=== PATIENT | female | born 1965 | race Caucasian/White ===

== ENCOUNTER 2018-03-20 06:22 | Day surgery (SDC) | payer OTHER, MEDICARE ==
[~2018-03-20] VITALS: Ht 144.8 cm; Wt 69.0 kg
[~2018-03-20 06:22] MED LIST: AMLO-512 PO; CALC-877 PO; CARB200T6 PO; CHLO100T24 PO; CHLO25 PO; CLON.2 PO; LABE100 PO; LORA10TA7 PO; METF-445 PO; MULT1CAP32 PO; RINGERS SOLUTION,LACTATED 1,000 ML IV ONE; SIMV-261 PO; TERA5CAP12 PO
[2018-03-20] MEDS ORDERED: RINGERS SOLUTION,LACTATED 1,000 ML IV ONE ×2 (07:00→11:28)
[2018-03-20] MEDS ORDERED: MEPERIDINE-PF 25 MG/ML VIAL IVP PRN (11:45)
[2018-03-20] MEDS ORDERED: FentaNYL CITRATE-PF 100 MCG/2 ML VIAL IVP PRN (11:45)
[2018-03-20] MEDS ORDERED: HYDROmorphone 2 MG/ML SYRINGE IVP PRN (11:45)
[2018-03-20] MEDS ORDERED: FentaNYL CITRATE-PF 100 MCG/2 ML VIAL ONE (11:49)
[2018-03-20] MEDS ORDERED: FentaNYL CITRATE-PF 100 MCG/2 ML VIAL IVP STA (11:52)
[2018-03-20] MEDS ORDERED: LABETALOL HCL 5 MG/ML 20 ML VIAL IVP ONE (11:52)
[2018-03-20] MEDS ORDERED: LABETALOL HCL 5 MG/ML 20 ML VIAL IVP STA (11:55)
[2018-03-20] MEDS ORDERED: METOCLOPRAMIDE HCL 5 MG/ML 2 ML VIAL IVP ONE (12:00)
[2018-03-20] MEDS ORDERED: GLYCOPYRROLATE 0.2 MG/ML VIAL IM ONE (12:00)
[2018-03-20] MEDS ORDERED: FentaNYL CITRATE-PF 100 MCG/2 ML VIAL IVP ONE (12:00)
[2018-03-20] MEDS ORDERED: NEOSTIGMINE METHYLSULFATE 1 MG/ML 10 ML VIAL IVP ONE (12:00)
[2018-03-20] MEDS ORDERED: ROCURONIUM BROMIDE 10 MG/ML 5 ML VIAL IVP ONE (12:00)
[2018-03-20] MEDS ORDERED: ONDANSETRON HCL 4 MG/2 ML VIAL IVP ONE (12:00)
[2018-03-20] MEDS ORDERED: DEXAMETHASONE SOD PHOS 4 MG/ML VIAL IVP ONE (12:00)
[2018-03-20] MEDS ORDERED: LIDOCAINE/PF 2% 5 ML VIAL INJ ONE (12:00)
[2018-03-20] MEDS ORDERED: KETOROLAC TROMETHAMINE 60 MG/2 ML VIAL IM ONE (12:00)
[2018-03-20] MEDS ORDERED: PROPOFOL 1% 20 ML VIAL IVP ONE (12:00)
[2018-03-20] MEDS ORDERED: MIDAZOLAM HCL 2 MG/2 ML VIAL IVP ONE (12:00)
[2018-03-20 12:05] VITALS: BP 193/122
[2018-03-20] MEDS ORDERED: HydrALAZINE HCL 20 MG/ML VIAL ONE (12:19)
[2018-03-20] MEDS ORDERED: LABETALOL HCL 5 MG/ML 20 ML VIAL IVP PRN (12:30)
[2018-03-20] MEDS: HydrALAZINE HCL 20 MG/ML VIAL IVP PRN ×2 (12:30→12:45)
[2018-03-20 12:59] LABS: GLUCOMETER DEV NAME(LOC) SDS 5; GLUCOSE,POINT OF CARE 136 MG/DL (70-110)
[2018-03-20] MEDS ORDERED: OXYGEN THERAPY IH SCH (20:00)
== END 2018-03-20 13:29 | disposition short-term general hospital (02) ==
LOC: SURGERY 06:22
PROVIDERS: ATTEND Dentist General Practice
DX: K05.30 Chronic periodontitis, unspecified (principal); E03.9 Hypothyroidism, unspecified; E11.9 Type 2 diabetes mellitus without complications; I10 Essential (primary) hypertension; F78 Other intellectual disabilities; Z79.84 Long term (current) use of oral hypoglycemic drugs; Z86.69 Personal history of other diseases of the nervous system and sense organs; Z79.899 Other long term (current) drug therapy
CPT/HCPCS: 41899; 82962; J0360; J0690; J1100; J1885; J2250; J2405; J2704; J2765; J3010; J3490 ×4; J7120

== ENCOUNTER 2019-06-18 06:25 | Day surgery (SDC) | payer OTHER, MEDICARE ==
[~2019-06-18] VITALS: Ht 185.4 cm; Wt 67.3 kg
[~2019-06-18 06:25] MED LIST changes: +ACET-2247 PO; -AMLO-512 PO; +AMLO10TA7 PO; +BENA20TA11 PO; -CLON.2 PO; +CLON0.2T2 PO; -LABE100 PO; +LABE100T8 PO; +LABE200T6 PO; +PSEU-224 PO
[2019-06-18] MEDS ORDERED: ALBUTEROL SULFATE HFA 90 MCG/PUFF 8 GM INHALER IH ONE ×2 (06:26→12:45)
[2019-06-18] MEDS ORDERED: MIDAZOLAM HCL 2 MG/2 ML VIAL IVP ONE (06:26)
[2019-06-18] MEDS ORDERED: LIDOCAINE 1% 10 ML VIAL IM ONE (06:26)
[2019-06-18] MEDS ORDERED: PROPOFOL 1% 20 ML VIAL IVP ONE (06:26)
[2019-06-18] MEDS ORDERED: ONDANSETRON HCL 4 MG/2 ML VIAL IVP ONE (06:26)
[2019-06-18] MEDS ORDERED: ROCURONIUM BROMIDE 10 MG/ML 5 ML VIAL IVP ONE (06:26)
[2019-06-18] MEDS ORDERED: RINGERS SOLUTION,LACTATED 1,000 ML IV ONE (07:00)
[2019-06-18 07:16] LABS: BASOPHILS % (AUTO) 0.7 % (0.0-2.0); EOSINOPHILS % (AUTO) 1.7 % (1.0-6.0); HEMATOCRIT 36.5 % (36-46); HEMOGLOBIN 12.5 g/dL (12.0-16.0); LYMPHOCYTES # (AUTO) 0.8 K/uL (1.0-4.8); LYMPHOCYTES % (AUTO) 8.8 % (22.0-44.0); MEAN CORPUSCULAR HEMOGLOBIN 32.7 pg (26.0-34.0); MEAN CORPUSCULAR HGB CONC 34.2 G/dL (31.0-37.0); MEAN CORPUSCULAR VOLUME 96 fL (80-100); MONOCYTES # (AUTO) 0.6 K/uL (0.1-1.0); NEUTROPHILS % (AUTO) 81.8 % (40.0-70.0); PLATELET COUNT (AUTO) 214 K/uL (150-450); RED BLOOD CELL COUNT(AUTO) 3.82 MIL/uL (4.00-5.20)
[2019-06-18 07:25] LABS: ANION GAP 6 mmol/L (8-16); CALCIUM, TOTAL 8.7 mg/dL (8.8-10.5); CARBON DIOXIDE 30 mmol/L (22-29); CHLORIDE 104 mmol/L (98-107); CREATININE 0.61 mg/dL (0.60-1.30); GLOMERULAR FILTR. RATE CALC > 60 mL/min (>60); GLUCOSE,RANDOM 157 mg/dL (70-110); POTASSIUM 3.9 mmol/L (3.5-5.1); SODIUM SERUM 140 mmol/L (136-145); UREA NITROGEN, BLOOD 15 mg/dL (7-18)
[2019-06-18 07:31] LABS: ALANINE AMINOTRANSFERASE 25 U/L (12-78); ALBUMIN 3.3 g/dL (3.4-5.0); ALKALINE PHOSPHATASE 100 U/L (46-116); ASPARTATE AMINOTRANSFERASE 15 U/L (15-37); BILIRUBIN,TOTAL 0.3 mg/dL (0.1-1.0)
[2019-06-18 07:33] LABS: PROTHROMBIN TIME 10.4 SEC (9.4-11.6)
[2019-06-18] MEDS ORDERED: AMPICILLIN SODIUM 1 GM/VIAL ONE ×2 (08:58→09:26)
[2019-06-18] MEDS ORDERED: ALBUTEROL SULFATE 2.5 MG/0.5 ML NEB SOLUTION NEB ONE (12:29)
[2019-06-18] MEDS ORDERED: SUGAMMADEX SODIUM 200 MG/2 ML VIAL IVP ONE (12:39)
[2019-06-18] MEDS ORDERED: MEPERIDINE-PF 25 MG/ML VIAL IVP PRN (13:00)
[2019-06-18] MEDS ORDERED: FentaNYL CITRATE-PF 100 MCG/2 ML VIAL IVP PRN (13:00)
[2019-06-18] MEDS ORDERED: HYDROmorphone 2 MG/ML SYRINGE IVP PRN (13:00)
[2019-06-18] MEDS ORDERED: ACETAMINOPHEN 325 MG TABLET PO PRN (14:45)
[2019-06-18] MEDS ORDERED: ONDANSETRON HCL 4 MG/2 ML VIAL IVP PRN (14:45)
[2019-06-18] MEDS ORDERED: HYDROCODONE/ACETAMINOPHEN 5-325 MG TABLET PO PRN (14:45)
[2019-06-18] MEDS ORDERED: MORPHINE SULFATE 2 MG/ML SYRINGE IVP PRN (14:45)
[2019-06-18] MEDS ORDERED: BISACODYL 10 MG RECTAL RECTAL SUPPOSITORY PR PRN (14:45)
[2019-06-18] MEDS ORDERED: CLINDAMYCIN 600 MG/D5% WATER 50 ML IV ONE (14:45)
[2019-06-18] MEDS ORDERED: MAGNESIUM HYDROXIDE SUSPENSION 30 ML UDCUP PO PRN (14:45)
[2019-06-18] MEDS ORDERED: ZOLPIDEM TARTRATE 5 MG TABLET PO PRN (14:45)
[2019-06-18] MEDS ORDERED: ALBUTEROL SULFATE 2.5 MG/0.5 ML NEB SOLUTION NEB PRN (14:45)
[2019-06-18] MEDS ORDERED: IPRATROPIUM BROMIDE 0.5 MG/2.5 ML NEB SOLUTION NEB PRN (14:45)
[2019-06-18] MEDS ORDERED: LEVOFLOXACIN 750 MG/D5% WATER 150 ML IV SCH (15:00)
[2019-06-18 15:14] LABS: GLUCOMETER DEV NAME(LOC) SDS.; GLUCOSE,POINT OF CARE 141 MG/DL (70-110)
[2019-06-18] MEDS ORDERED: HEPARIN SODIUM,PORCINE 5,000 UNITS/ML VIAL SQ SCH (16:00)
[2019-06-18] MEDS ORDERED: CloNIDine HCL 0.2 MG TABLET PO SCH (16:00)
[2019-06-18 16:46] VITALS: BP 162/88
[2019-06-18] MEDS ORDERED: MetFORMIN HCL 850 MG TABLET PO SCH (17:30)
[2019-06-18] MEDS ORDERED: OXYGEN THERAPY IH SCH (20:00)
[2019-06-18] MEDS ORDERED: DOCUSATE SODIUM 100 MG CAPSULE PO SCH (21:00)
[2019-06-18] MEDS ORDERED: SIMVASTATIN 40 MG TABLET PO SCH (21:00)
[2019-06-18] MEDS ORDERED: LABETALOL HCL 200 MG TABLET PO SCH (21:00)
[2019-06-18] MEDS ORDERED: ChlorproMAZINE HCL 25 MG TABLET PO SCH (21:00)
[2019-06-18] MEDS ORDERED: ChlorproMAZINE HCL 100 MG TABLET PO SCH (21:00)
[2019-06-18] MEDS ORDERED: LABETALOL HCL 100 MG TABLET PO SCH (21:00)
[2019-06-18] MEDS ORDERED: CarBAMazepine 200 MG TABLET PO SCH (21:00)
[2019-06-19] MEDS ORDERED: TERAZOSIN HCL 5 MG CAPSULE PO SCH (09:00)
[2019-06-19] MEDS ORDERED: AmLODIPine BESYLATE 10 MG TABLET PO SCH (09:00)
[2019-06-19] MEDS ORDERED: PANTOPRAZOLE SODIUM 40 MG DR TABLET PO SCH (09:00)
[2019-06-19] MEDS ORDERED: LORATADINE 10 MG TABLET PO SCH (09:00)
[2019-06-19] MEDS ORDERED: BENAZEPRIL HCL 20 MG TABLET PO SCH (09:00)
[2019-06-19] MEDS ORDERED: CLIN300C3 PO (10:33)
[2019-06-19] MEDS ORDERED: LEVO750T21 PO (10:33)
== END 2019-06-18 16:17 | disposition short-term general hospital (02) ==
LOC: SURGERY 06:25
PROVIDERS: ATTEND Dentist General Practice
DX: K02.9 Dental caries, unspecified (principal); K05.30 Chronic periodontitis, unspecified; G40.909 Epilepsy, unspecified, not intractable, without status epilepticus; I10 Essential (primary) hypertension; E11.9 Type 2 diabetes mellitus without complications; E78.5 Hyperlipidemia, unspecified; Z79.899 Other long term (current) drug therapy; Z79.01 Long term (current) use of anticoagulants
CPT/HCPCS: 36415; 41899; 71045; 80053; 82962; 85025; 85610; 85730; 87040; 93005; J0290; J1956; J2250; J2405; J2704; J3490 ×3; J7120; J3535

== ENCOUNTER 2019-06-18 16:30 | Inpatient (IN) | payer MEDICARE, OTHER ==
[~2019-06-18 16:30] MED LIST changes: -RINGERS SOLUTION,LACTATED 1,000 ML IV ONE
[2019-06-18 16:46] VITALS: BP 162/88
[2019-06-18] MEDS ORDERED: ACETAMINOPHEN 325 MG TABLET PO PRN ×2 (17:15→20:15)
[2019-06-18] MEDS ORDERED: PSEUDOEPHEDRINE HCL 30 MG TABLET PO PRN (17:15)
[2019-06-18] MEDS ORDERED: *CLINICAL-LEVOFLOXACIN IVPB DOSING CLINICAL ONE (17:15)
[2019-06-18 19:38] VITALS: BP 158/96
[2019-06-18] MEDS ORDERED: SODIUM CHLORIDE 0.9% 500 ML IV ONE (19:54)
[2019-06-18] MEDS: CLINDAMYCIN 600 MG/D5% WATER 50 ML IV SCH (20:05)
[2019-06-18] MEDS: LABETALOL HCL 100 MG TABLET PO SCH (20:09)
[2019-06-18] MEDS: LABETALOL HCL 200 MG TABLET PO SCH (20:09)
[2019-06-18] MEDS: MetFORMIN HCL 850 MG TABLET PO SCH (20:10)
[2019-06-18] MEDS: CarBAMazepine 200 MG TABLET PO SCH (20:11)
[2019-06-18] MEDS ORDERED: ONDANSETRON HCL 4 MG/2 ML VIAL IVP PRN (20:15)
[2019-06-18] MEDS ORDERED: MAGNESIUM HYDROXIDE SUSPENSION 30 ML UDCUP PO PRN (20:15)
[2019-06-18] MEDS ORDERED: ZOLPIDEM TARTRATE 5 MG TABLET PO PRN (20:15)
[2019-06-18] MEDS ORDERED: BISACODYL 10 MG RECTAL RECTAL SUPPOSITORY PR PRN (20:15)
[2019-06-18] MEDS ORDERED: HYDROCODONE/ACETAMINOPHEN 5-325 MG TABLET PO PRN (20:15)
[2019-06-18] MEDS ORDERED: MORPHINE SULFATE 2 MG/ML SYRINGE IVP PRN (20:15)
[2019-06-18] MEDS: DOCUSATE SODIUM 100 MG CAPSULE PO SCH (20:18)
[2019-06-18] MEDS: CloNIDine HCL 0.2 MG TABLET PO SCH (20:18)
[2019-06-18] MEDS ORDERED: SIMVASTATIN 40 MG TABLET PO SCH (21:00)
[2019-06-18] MEDS ORDERED: LEVOFLOXACIN 750 MG/D5% WATER 150 ML IV SCH (21:00)
[2019-06-18] MEDS ORDERED: ChlorproMAZINE HCL 100 MG TABLET PO SCH (21:00)
[2019-06-18 23:05] VITALS: BP 163/99
[2019-06-19] MEDS: HEPARIN SODIUM,PORCINE 5,000 UNITS/ML VIAL SQ SCH ×2 (00:04→08:36)
[2019-06-19] MEDS: CLINDAMYCIN 600 MG/D5% WATER 50 ML IV SCH (03:40)
[2019-06-19 05:01] VITALS: BP 150/90
[2019-06-19 08:06] VITALS: BP 178/101
[2019-06-19] MEDS: DOCUSATE SODIUM 100 MG CAPSULE PO SCH (08:34)
[2019-06-19] MEDS: LABETALOL HCL 200 MG TABLET PO SCH (08:48)
[2019-06-19] MEDS: CarBAMazepine 200 MG TABLET PO SCH (08:48)
[2019-06-19] MEDS: MetFORMIN HCL 850 MG TABLET PO SCH (08:49)
[2019-06-19] MEDS: LABETALOL HCL 100 MG TABLET PO SCH (08:49)
[2019-06-19] MEDS ORDERED: BENAZEPRIL HCL 20 MG TABLET PO SCH (09:00)
[2019-06-19] MEDS: CloNIDine HCL 0.2 MG TABLET PO SCH (09:00)
[2019-06-19] MEDS ORDERED: ChlorproMAZINE HCL 25 MG TABLET PO SCH (09:00)
[2019-06-19] MEDS ORDERED: LORATADINE 10 MG TABLET PO SCH (09:00)
[2019-06-19] MEDS ORDERED: AmLODIPine BESYLATE 10 MG TABLET PO SCH (09:00)
[2019-06-19] MEDS ORDERED: PANTOPRAZOLE SODIUM 40 MG DR TABLET PO SCH (09:00)
[2019-06-19] MEDS ORDERED: MULTIVITAMINS, THERAPEUTIC TABLET PO SCH (09:00)
[2019-06-19] MEDS ORDERED: TERAZOSIN HCL 5 MG CAPSULE PO SCH (09:00)
[2019-06-19] MEDS ORDERED: CALCIUM OYSTER SHELL 250 MG-VIT D3 125 UNITS TABLET PO SCH (09:00)
[2019-06-19 10:28] VITALS: BP 127/76
[2019-06-19] MEDS ORDERED: LEVO750T21 PO (10:33)
[2019-06-19] MEDS ORDERED: CLIN300C3 PO (10:33)
== END 2019-06-19 11:30 | disposition home or self-care (01) | DRG 195 ==
LOC: 6N 16:30 → 4E 06-19 06:52
PROVIDERS: ADMIT Internal Medicine; ATTEND Internal Medicine
DX: J18.9 Pneumonia, unspecified organism (principal); I10 Essential (primary) hypertension; E11.9 Type 2 diabetes mellitus without complications; E78.5 Hyperlipidemia, unspecified; G47.33 Obstructive sleep apnea (adult) (pediatric); G40.909 Epilepsy, unspecified, not intractable, without status epilepticus; Z79.899 Other long term (current) drug therapy
CPT/HCPCS: J1644; J1956; J3490; J7040

== ENCOUNTER → 2020-10-13 | Day surgery (SDC) | payer OTHER, MEDICARE ==
[~2020-10-13] VITALS: Ht 149.9 cm; Wt 67.3 kg
[~2020-10-13] MED LIST changes: +AMLO-258 PO; -AMLO10TA7 PO; +AMPICILLIN SODIUM 2 GM/NS 100 ML IV ONE; -CHLO100T24 PO; +CHLO100T31 PO; -CHLO25 PO; +CHLO25TA47 PO; +CLIN300C3 PO; +DEXAMETHASONE SOD PHOS 4 MG/ML VIAL IVP ONE; +FentaNYL CITRATE PF 100 MCG/2 ML VIAL IVP ONE; +FentaNYL CITRATE PF 100 MCG/2 ML VIAL IVP PRN; +HYDROmorphone 2 MG/ML VIAL IVP PRN; +LEVO750T21 PO; +MEPERIDINE-PF 25 MG/ML VIAL IVP PRN; +ONDANSETRON HCL 4 MG/2 ML VIAL IVP ONE; +PROPOFOL 1% 20 ML VIAL IVP ONE; +RINGERS SOLUTION,LACTATED 1,000 ML IV ONE; +SUCCINYLCHOLINE CHLORIDE 20 MG/ML 10 ML VIAL IVP ONE; -TERA5CAP12 PO; +TERA5CAP77 PO
[2020-10-13 07:26] LABS: COVID AG,FIA SOURCE NASOPHARYNGEAL
[2020-10-13 07:31] LABS: BASOPHILS % (AUTO) 0.9 % (0.0-2.0); EOSINOPHILS % (AUTO) 1.2 % (1.0-6.0); HEMATOCRIT 43.8 % (36-46); HEMOGLOBIN 14.6 g/dL (12.0-16.0); LYMPHOCYTES # (AUTO) 0.9 K/uL (1.0-4.8); LYMPHOCYTES % (AUTO) 16.8 % (22.0-44.0); MEAN CORPUSCULAR HEMOGLOBIN 31.7 pg (26.0-34.0); MEAN CORPUSCULAR HGB CONC 33.4 G/dL (31.0-37.0); MEAN CORPUSCULAR VOLUME 95 fL (80-100); MONOCYTES # (AUTO) 0.5 K/uL (0.1-1.0); NEUTROPHILS # (AUTO) 4.1 K/uL (1.8-7.7); NEUTROPHILS % (AUTO) 72.1 % (40.0-70.0); PLATELET COUNT (AUTO) 201 K/uL (150-450); RED BLOOD CELL COUNT(AUTO) 4.61 MIL/uL (4.00-5.20); RED CELL DISTRIBUTION WIDTH 13.2 % (11.5-14.5)
[2020-10-13 07:46] LABS: ANION GAP 12 mmol/L (8-16); CALCIUM, TOTAL 9.4 mg/dL (8.8-10.5); CARBON DIOXIDE 28 mmol/L (22-29); CHLORIDE 103 mmol/L (98-107); CREATININE 0.63 mg/dL (0.60-1.30); GLOMERULAR FILTR. RATE CALC > 60 mL/min (>60); GLUCOSE,RANDOM 148 mg/dL (70-110); POTASSIUM 3.8 mmol/L (3.5-5.1); SODIUM SERUM 143 mmol/L (136-145); UREA NITROGEN, BLOOD 15 mg/dL (7-18)
[2020-10-13 07:53] LABS: ALANINE AMINOTRANSFERASE 27 U/L (12-78); ALBUMIN 4.3 g/dL (3.4-5.0); ALKALINE PHOSPHATASE 101 U/L (46-116); ASPARTATE AMINOTRANSFERASE 16 U/L (15-37); BILIRUBIN,TOTAL 0.5 mg/dL (0.1-1.0); TOTAL PROTEIN, SERUM 7.5 g/dL (6.4-8.2)
[2020-10-13 07:58] LABS: PROTHROMBIN TIME 10.9 SEC (9.4-11.6)
== END | disposition home or self-care (01) ==
LOC: SURGERY 06:34
PROVIDERS: ATTEND Dentist General Practice
DX: K02.9 Dental caries, unspecified (principal); K05.30 Chronic periodontitis, unspecified; K03.6 Deposits [accretions] on teeth; G40.909 Epilepsy, unspecified, not intractable, without status epilepticus; I10 Essential (primary) hypertension; E11.9 Type 2 diabetes mellitus without complications; E78.5 Hyperlipidemia, unspecified; R62.50 Unspecified lack of expected normal physiological development in childhood; F63.81 Intermittent explosive disorder; Z79.899 Other long term (current) drug therapy; E78.00 Pure hypercholesterolemia, unspecified; Z98.890 Other specified postprocedural states
CPT/HCPCS: 36415; 41899; 71045; 80053; 85025; 85610; 85730; 87426; 93005; C9803; J0290; J0330; J1100; J2405; J2704; J3010; J7120

== ENCOUNTER 2022-05-17 06:08 | Day surgery (SDC) | payer OTHER, MEDICARE ==
[~2022-05-17] VITALS: Ht 152.4 cm; Wt 57.7 kg
[~2022-05-17 06:08] MED LIST changes: -ACET-2247 PO; -AMPICILLIN SODIUM 2 GM/NS 100 ML IV ONE; -BENA20TA11 PO; +BENA20TA83 PO; -CHLO100T31 PO; +CHLO100T42 PO; -CHLO25TA47 PO; +CHLO25TA69 PO; -CLIN300C3 PO; +CLIN300C58 PO; -DEXAMETHASONE SOD PHOS 4 MG/ML VIAL IVP ONE; -FentaNYL CITRATE PF 100 MCG/2 ML VIAL IVP ONE; -FentaNYL CITRATE PF 100 MCG/2 ML VIAL IVP PRN; -HYDROmorphone 2 MG/ML VIAL IVP PRN; -LABE100T8 PO; +LABE200T56 PO; -LABE200T6 PO; -MEPERIDINE-PF 25 MG/ML VIAL IVP PRN; +METF-1211 PO; -METF-445 PO; -ONDANSETRON HCL 4 MG/2 ML VIAL IVP ONE; -PROPOFOL 1% 20 ML VIAL IVP ONE; -PSEU-224 PO; -RINGERS SOLUTION,LACTATED 1,000 ML IV ONE; -SUCCINYLCHOLINE CHLORIDE 20 MG/ML 10 ML VIAL IVP ONE
[2022-05-17] MEDS ORDERED: PROPOFOL 1% 20 ML VIAL IVP ONE (06:09)
[2022-05-17] MEDS ORDERED: FentaNYL CITRATE PF 100 MCG/2 ML VIAL IVP ONE (06:09)
[2022-05-17] MEDS ORDERED: DEXAMETHASONE SOD PHOS 4 MG/ML VIAL IVP ONE (06:09)
[2022-05-17] MEDS ORDERED: LIDOCAINE/PF 2% 5 ML VIAL IM ONE (06:09)
[2022-05-17] MEDS ORDERED: ROCURONIUM BROMIDE 10 MG/ML 5 ML VIAL IVP ONE (06:09)
[2022-05-17] MEDS ORDERED: MIDAZOLAM HCL 2 MG/2 ML VIAL IVP ONE (06:09)
[2022-05-17] MEDS ORDERED: RINGERS SOLUTION,LACTATED 1,000 ML IV ONE (06:30)
[2022-05-17 06:55] LABS: COVID AG,FIA SOURCE NASOPHARYNGEAL
[2022-05-17] MEDS ORDERED: SODIUM CHLORIDE 0.9% 1,000 ML IV ONE (07:00)
[2022-05-17 07:04] LABS: BASOPHILS % (AUTO) 0.6 % (0.0-2.0); HEMATOCRIT 37.6 % (36-46); HEMOGLOBIN 12.7 g/dL (12.0-16.0); LYMPHOCYTES % (AUTO) 18.5 % (22.0-44.0); MEAN CORPUSCULAR HEMOGLOBIN 31.9 pg (26.0-34.0); MEAN CORPUSCULAR HGB CONC 33.7 G/dL (31.0-37.0); MEAN CORPUSCULAR VOLUME 95 fL (80-100); MONOCYTES # (AUTO) 0.5 K/uL (0.1-1.0); MONOCYTES % (AUTO) 9.4 % (2.0-9.0); NEUTROPHILS # (AUTO) 3.7 K/uL (1.8-7.7); NEUTROPHILS % (AUTO) 69.5 % (40.0-70.0); PLATELET COUNT (AUTO) 200 K/uL (150-450); RED BLOOD CELL COUNT(AUTO) 3.98 MIL/uL (4.00-5.20); RED CELL DISTRIBUTION WIDTH 13.5 % (11.5-14.5)
[2022-05-17] MEDS ORDERED: BENA40TA92 PO (07:12)
[2022-05-17 07:14] LABS: ANION GAP 3 mmol/L (8-16); CALCIUM, TOTAL 9.3 mg/dL (8.8-10.5); CARBON DIOXIDE 31 mmol/L (22-29); CHLORIDE 104 mmol/L (98-107); CREATININE 0.67 mg/dL (0.60-1.30); GLOMERULAR FILTR. RATE CALC > 60 mL/min (>60); GLUCOSE,RANDOM 134 mg/dL (70-110); POTASSIUM 3.6 mmol/L (3.5-5.1); SODIUM SERUM 138 mmol/L (136-145); UREA NITROGEN, BLOOD 12 mg/dL (7-18)
[2022-05-17] MEDS ORDERED: CARB200T6 PO (07:14)
[2022-05-17] MEDS ORDERED: CHLO50TA53 PO (07:14)
[2022-05-17] MEDS ORDERED: ATOR40TA71 PO (07:17)
[2022-05-17 07:19] LABS: ALANINE AMINOTRANSFERASE 19 U/L (12-78); ALBUMIN 3.6 g/dL (3.4-5.0); ALKALINE PHOSPHATASE 94 U/L (46-116); ASPARTATE AMINOTRANSFERASE 16 U/L (15-37); BILIRUBIN,TOTAL 0.4 mg/dL (0.1-1.0); TOTAL PROTEIN, SERUM 6.6 g/dL (6.4-8.2)
[2022-05-17] MEDS ORDERED: METF-446 PO (07:19)
[2022-05-17] MEDS ORDERED: TERA10CA4 PO (07:19)
[2022-05-17 07:24] LABS: PROTHROMBIN TIME 10.8 SEC (9.4-11.6)
[2022-05-17] MEDS ORDERED: AMPICILLIN SODIUM 2 GM/NS 100 ML IV ONE (07:38)
[2022-05-17] MEDS ORDERED: DEXTROSE 50%-WATER 25 GM/50 ML SYRINGE IVP PRN (08:30)
[2022-05-17] MEDS ORDERED: INSULIN LISPRO 100 UNITS/ML SQ PRN (08:30)
[2022-05-17] MEDS ORDERED: FentaNYL CITRATE PF 100 MCG/2 ML VIAL IVP PRN (09:15)
[2022-05-17] MEDS ORDERED: SUGAMMADEX SODIUM 200 MG/2 ML VIAL IVP ONE ×2 (09:56→10:10)
[2022-05-17] MEDS ORDERED: OXYGEN THERAPY IH SCH (20:00)
== END 2022-05-17 11:20 | disposition home or self-care (01) ==
LOC: SURGERY 06:08
PROVIDERS: ATTEND Dentist General Practice
DX: K05.30 Chronic periodontitis, unspecified (principal); K02.9 Dental caries, unspecified; I10 Essential (primary) hypertension; E11.9 Type 2 diabetes mellitus without complications; G40.909 Epilepsy, unspecified, not intractable, without status epilepticus; Z79.01 Long term (current) use of anticoagulants; Z79.899 Other long term (current) drug therapy; R62.50 Unspecified lack of expected normal physiological development in childhood
CPT/HCPCS: 41899; 71045; 87426; 80053; 85025; 85610; 85730; 36415; 93005; J0290; J2704; J1100; J3010; J3490 ×2; J2250; Q9967; C9803